=== PATIENT | female | born 1990 | race Caucasian/White ===

== ENCOUNTER 2017-02-20 19:48 | Emergency (ER) | payer MEDICAID ==
[2017-02-20 22:08] LABS: BASOPHIL % 0.5 % (0-2); PLATELET COUNT 187 x10^3mcL (130-400); RED CELL DISTRIBUTION WIDTH 12.8 % (11.5-14.5)
[2017-02-20 22:20] LABS: CALCIUM 8.6 mg/dL (8.5-10.1); CARBON DIOXIDE 25.3 mmol/L (21-32); CHLORIDE SERUM 106 mmol/L (98-107); CREATININE SERUM 0.7 mg/dL (0.6-1.0); GFR1 > 60 mL/min; GLUCOSE SERUM 110 mg/dL (74-106); POTASSIUM SERUM 3.4 mmol/L (3.5-5.1); SODIUM SERUM 139 mmol/L (136-145)
[2017-02-20 22:25] LABS: ALBUMIN 4.2 g/dL (3.4-5.0); ALKALINE PHOSPHATASE 57 U/L (46-116); ALT/SGPT 22 U/L (14-59); AST/SGOT 11 U/L (15-37); BILIRUBIN TOTAL 0.22 mg/dL (0.20-1.00); TOTAL PROTEIN, SERUM 7.4 g/dL (6.4-8.2)
[2017-02-20 22:47] LABS: CK-MB 0.9 ng/mL (0-3.6)
[2017-02-20 23:08] VITALS: BP 121/76
== END 2017-02-20 23:08 | disposition home or self-care (01) ==
LOC: ED 19:48
PROVIDERS: Emergency Medicine
DX: R07.9 Chest pain, unspecified (principal); R06.02 Shortness of breath; R00.2 Palpitations; R20.0 Anesthesia of skin
CPT/HCPCS: 36415; Q0092

== ENCOUNTER 2017-03-08 10:05 | Emergency (ER) | payer OTHER ==
[2017-03-08 10:12] VITALS: BP 125/74
== END 2017-03-08 13:50 | disposition home or self-care (01) ==
LOC: ED 10:05
DX: R51 Headache (principal); M25.531 Pain in right wrist